=== PATIENT | male | born 1950 | race Two or more races ===

== ENCOUNTER 2017-03-01 09:59 | Emergency (ER) | payer OTHER ==
[~2017-03-01] VITALS: Ht 170.2 cm; Wt 81.6 kg
[2017-03-01 10:12] VITALS: BP 153/81
--- NOTE | 2017-03-01 10:43 | NUR ---
THROAT CULTURE SAMPLE COLLECTED
== END 2017-03-01 11:02 | disposition home or self-care (01) ==
LOC: ER 10:00
DX: J02.9 Acute pharyngitis, unspecified (principal); I10 Essential (primary) hypertension
CPT/HCPCS: 87070-TC; A4606; J1100; Z7610

== ENCOUNTER 2017-03-08 02:40 | Emergency (ER) | payer OTHER ==
[~2017-03-08] VITALS: Ht 177.8 cm; Wt 81.6 kg
[2017-03-08 02:47] VITALS: BP 156/97
[2017-03-08] MEDS ORDERED: SILVER NITRATE APPLICATOR 1 EA BOX ONE (03:11)
[2017-03-08] MEDS ORDERED: OXYMETAZOLINE HCL NASAL SPRAY 30 ML BOTTLE NS ONE (03:12)
== END 2017-03-08 04:05 | disposition home or self-care (01) ==
LOC: ER 02:45
DX: R04.0 Epistaxis (principal); I10 Essential (primary) hypertension
CPT/HCPCS: 99281; A4606; Z7610; Z7502

== ENCOUNTER 2017-08-31 11:01 | Emergency (ER) | payer OTHER ==
[~2017-08-31] VITALS: Ht 172.7 cm; Wt 89.4 kg
[2017-08-31 11:05] VITALS: BP 159/92
== END 2017-08-31 12:39 | disposition home or self-care (01) ==
LOC: ER 11:04
DX: J02.9 Acute pharyngitis, unspecified (principal); R05 Cough; I10 Essential (primary) hypertension
CPT/HCPCS: 71045-TC; A4606; Z7610